=== PATIENT | male | born 1995 | race Caucasian/White ===

== ENCOUNTER → 2018-01-25 | Outpatient (CLI) | payer BC ==
[2016-08-29 11:42] VITALS: BMI 33.4
[~2018-01-25] MED LIST: ABILIF5PT PO; AMOX-362 PO; AMOX-559 PO; ARIP2TAB2 PO; CYCL10TA29 PO; DEXM10CP6 PO; DEXM10TA3 PO; HYDR-317 PO; HYDR-4309 PO; IBUP800T37 PO; KET10 PO; MELA3TAB31 PO; METHY10 GT; ONDA4TAB PO; PRED20TA6 PO; PROM-110 PO; SERT-173 PO; TRAM-420 PO
--- NOTE | 2018-01-25 14:35 | RADIOLOGY IMAGING REPORT ---
FACILITY: [facility] - [place] PATIENT NAME: Rogerio Dinh : 1995 MR: [id number] V: [id number] EXAM DATE: ORDERING PHYSICIAN: KAYLA TEJADA TECHNOLOGIST: Location: [facility] - [place] Patient: Rogerio Dinh : 1995 Visit/Account:[id number] Date of Sevice: 01/25/2018 Exam type: SOFT TISSUE HEAD NECK History: Lump in left side of neck Comparison: None. Findings: There are multiple mildly prominent cervical lymph nodes bilaterally. The largest lymph node in zone five on the right measures 2 x 1.3 x 0.5 cm. Largest lymph node in zone two on the right measures 1 .5 x 1.8 x 0.9 cm. The largest lymph node in zone five on the left measures 5 x 1.8 x 1.2 cm the largest lymph node in z one six on the left measures 1.8 x 1.4 x 0.6 cm IMPRESSION: 1. There multiple enlarged bilateral cervical lymph nodes. CT of the neck with contrast is recommen ded Report Dictated By: Ariana Lovell MD at 01/25/2018 2:25 PM Report E-Signed By: Ariana Lovell MD at 01/25/2018 2:30 PM WSN:[email or web address]
== END ==
LOC: US 00:41
PROVIDERS: ATTEND Physician Assistant Medical
DX: R59.0 Localized enlarged lymph nodes (principal)
CPT/HCPCS: 76536

== ENCOUNTER → 2018-01-27 | Outpatient (CLI) | payer BC ==
[2016-08-29 11:42] VITALS: BMI 33.4
[~2018-01-27] MED LIST changes: +IOPAMIDOL 76% 75 ML INFUS BTL 75 ML ONE
--- NOTE | 2018-01-27 18:03 | RADIOLOGY IMAGING REPORT ---
FACILITY: [facility] - [place] PATIENT NAME: Rogerio Dinh : 1995 MR: [id number] V: [id number] EXAM DATE: ORDERING PHYSICIAN: KAYLA TEJADA TECHNOLOGIST: Location: [facility] Patient: Rogerio Dinh : 1995 Visit/Account:[id number] Date of Sevice: 01/27/2018 NECK SOFT TISSUE W CONTRAST Provided history: Probably enlarged lymph nodes, left greater than right. Additional pertinent history: none TECHNIQUE: Spiral scan was obtained from the hard palate through the upper chest with intravenous contrast Contrast dose: 75 mL Isovue 370 intravenously. One of the following dose optimization techniques was utilized in the performance of this exam: Autom ated exposure control; adjustment of the mA and/or kV according to the patient's size; or use of an i terative reconstruction technique. Specific details can be referenced in the facility's radiology CT exam operational policy. COMPARISON STUDIES: Ultrasound 01/25/18 FINDINGS: Visualized orbits / brain / paranasal sinuses: Several small retention cysts noted both maxillary si nuses. No air-fluid levels. Mild leftward deviation nasal septum. Potential small polyp left nasal ca vity. Nasal cavity / nasopharynx: Per above Oral cavity / oropharynx / hypopharynx: negative Parapharyngeal / schedule manager spaces: negative Major salivary glands: There are 3 small circumscribed soft tissue nodules in the superficial left p arotid, the largest measuring up to 8 mm in size. Though likely intraparotid lymph nodes these are no nspecific by CT. 2 additional smaller similar nodules present in the superficial right parotid. Larynx / trachea / esophagus / thyroid: negative Perivertebral space: negative Vessels: negative Bones: negative Skin / subcutaneous spaces: negative Lymph nodes: There are multiple circumscribed mildly prominent lymph nodes in all levels of the neck . As examples: Image 56, right level 1, 9 x 17 mm Image 54, right level 2, 9 x 17 mm Image 60, right level 3, 8 x 14 mm Image 53, left level 1, 9 x 18 mm Image 47, left level 2, 10 x 17 mm Image 55, left level 2, 11 x 12 mm Image 66, left level 3, 10 x 20 mm Image 89, left medial supraclavicular, 11 x 12 mm Image 88, left lateral subclavicular, 10 x 18 mm Upper chest: negative IMPRESSION: Numerous circumscribed borderline prominent-mildly prominent lymph nodes in the neck as fully detaile d above also involving both parotid glands. Leading consideration is a lymphoproliferative disorder. Metastatic disease is unlikely. Report Dictated By: Milton Martinez MD at 01/27/2018 5:43 PM Report E-Signed By: Milton Martinez MD at 01/27/2018 6:00 PM WSN:[email or web address]
== END ==
LOC: RAD 15:29
PROVIDERS: ATTEND Physician Assistant Medical
DX: R59.0 Localized enlarged lymph nodes (principal)
CPT/HCPCS: 70491; Q9967

== ENCOUNTER 2018-02-08 01:24 | Day surgery (SDC) | payer BC ==
[2016-08-29 11:42] VITALS: Ht 193 cm; Wt 134.7 kg
--- NOTE | 2018-02-02 17:38 | HISTORY AND PHYSICAL ---
DATE OF ADMISSION: February 08, 2018 CHIEF COMPLAINT Cervical adenopathy. HISTORY OF PRESENT ILLNESS This is a 23-year-old male with a few week history of swollen lymph nodes in the neck. He has had some associated nausea and he has had a little weight loss. He has had sweats. He had an ultrasound and a CAT scan which showed cervical lymphadenopathy. PAST SURGICAL HISTORY * Deviated septum. * Tonsillectomy. ALLERGIES TORADOL. CURRENT MEDICATIONS * Sertraline. * Focalin. * Dexmethylphenidate. * Omeprazole. REVIEW OF SYSTEMS Unremarkable. PHYSICAL EXAMINATION GENERAL: A 23-year-old man in no acute distress. LYMPH NODES: He has palpable small lymph nodes bilaterally, the most prominent one posteriorly low down on the left. No axillary or inguinal lymph nodes palpable. IMPRESSION Cervical lymphadenopathy PLAN We will do an excisional biopsy of one of the lymph nodes. We discussed the procedure, complications, recovery time. He seems to understand and wishes to proceed. RAMON
[~2018-02-08] VITALS: Ht 193 cm; Wt 134.7 kg
[2018-02-08] VITALS (7 sets, daily range): BP systolic 109–140; BP diastolic 63–77
[~2018-02-08 01:24] MED LIST changes: -IOPAMIDOL 76% 75 ML INFUS BTL 75 ML ONE
--- NOTE | 2018-02-08 04:11 | NACHTIGAL H&P ---
DATE OF ADMISSION: February 08, 2018 CHIEF COMPLAINT Cervical lymphadenopathy. HISTORY OF PRESENT ILLNESS This is a 23-year-old male with a few week history of swollen lymph nodes in his neck. He has had some nausea. He had a little weight loss. He has had sweats. Patient underwent an ultrasound and a CT which shows cervical lymphadenopathy. ALLERGIES KETOROLAC. CURRENT MEDICATIONS 1. Sertraline 100 mg 2 tablets a day. 2. Focalin 10 mg a day. 3. Dexmethylphenidate 40 mg daily. 4. Aripiprazole 15 mg nightly. PAST MEDICAL HISTORY/OPERATIONS Deviated septum and tonsillectomy. REVIEW OF SYSTEMS No cardiac, pulmonary, liver or kidney disease, diabetes or hypertension. No history of deep venous thrombosis. PHYSICAL EXAMINATION He has small lymph nodes palpable bilaterally in the neck. The most prominent one is posterior on the left, no axillary or inguinal lymphadenopathy was palpable. IMPRESSION Cervical lymphadenopathy. PLAN Will do an excisional biopsy of the posterior lymph node on the left for analysis. [facility]
[2018-02-08] MEDS ORDERED: LIDOCAINE/SOD BICARB 8.4% SYR ID ONE (06:30)
[2018-02-08] MEDS ORDERED: MIDAZOLAM 2 MG/2 ML VIAL IVP ONE (06:30)
[2018-02-08] MEDS ORDERED: FAMOTIDINE 20 MG TAB PO ONE (06:30)
[2018-02-08] MEDS ORDERED: NORMOSOL R SOLN(*) 1000 ML BAG 1,000 ML IV PRN (06:30)
[2018-02-08] MEDS ORDERED: ROPIVACAINE 0.2% 20 ML VIAL ONE ×2 (06:35→09:20)
[2018-02-08] MEDS ORDERED: DEXAMETHASONE SOD 4 MG/ML VIAL ONE (07:52)
[2018-02-08] MEDS ORDERED: ONDANSETRON 4 MG/2 ML VIAL ONE (07:52)
[2018-02-08] MEDS ORDERED: PROPOFOL EMUL(*) 10MG/ML 20 ML 20 ML ONE (07:52)
[2018-02-08] MEDS ORDERED: LIDOCAINE MPF 1% 5 ML VIAL ONE (07:52)
[2018-02-08] MEDS ORDERED: fentaNYL CITR 100 MCG/2 ML AMP ONE ×2 (07:52→09:44)
[2018-02-08 08:35] LABS: PLATELET COUNT, AUTOMATED 264 K/uL (150-450)
[2018-02-08] MEDS ORDERED: KETOROLAC 30 MG/ML VIAL ONE (08:50)
[2018-02-08] MEDS ORDERED: KETAMINE HCL 200 MG/20 ML MDV ONE (09:45)
[2018-02-08] MEDS ORDERED: GELATIN SPONGE 12-7MM ONE (10:04)
--- NOTE | 2018-02-08 10:15 | Post Operative Progress Note ---
Post Operative Progress Note Date: Feb 08, 2018 Time: 10:14 Surgeon: genaro Anesthesia: dr arnold Pre-Op Diagnosis: cervical lymphadenopathy Post-Op Diagnosis: same Procedure(s): left cervial lymph node biopsy VILMA CAMACHO MD Feb 08, 2018 10:15
--- NOTE | 2018-02-08 10:17 | Short(Outpt) Discharge Summary ---
Discharge Summary Reason for Hosp/Final Diag: (1) Cervical lymphadenopathy Hospital Course & Plan: left cervical lymph node biopsy Departure Discharge to: Home Discharge Instructions Home Meds Reported Medications Dexmethylphenidate Hcl (FOCALIN XR) 10 Mg Cpmp.50.50, 10 MG PO QDAY Take 10 mg at 1500 Hrs. 08/28/16 Aripiprazole (Aripiprazole) 2 Mg Tablet, MG PO QDAY 08/28/16 Aripiprazole (ABILIFY) 5 Mg Tablet, 7 MG PO QDAY, #10 TAB 02/25/16 Dexmethylphenidate Hcl (FOCALIN) 10 Mg Tablet, 30 MG PO QDAY 30 mg every morning 02/25/16 Sertraline Hcl (ZOLOFT) 100 Mg Tablet, 200 MG PO QAM, TAB 02/25/16 Discontinued Scripts Hydrocodone/Acetaminophen (Lortab 5-325 mg Tablet) 1 Each Tablet, 1 TAB PO Q4-6H , #15 Prov:BEULAH COHEN DO 10/17/16 Cyclobenzaprine Hcl (CYCLOBENZAPRINE HCL) 10 Mg Tablet, 10 MG PO TID, #15 TAB TAKE 1 TABLET BY MOUTH THREE TIMES A DAY Prov:BEULAH COHEN DO 10/17/16 Diet: Regular Activity: As Tolerated Special Instructions: remove bandage and shower to see me in one week, call [phone] for apt tylenol or ibuprofen for pain VILMA CAMACHO MD Feb 08, 2018 10:17
--- NOTE | 2018-02-08 19:58 | OPERATIVE REPORT 1 ---
EVENT DATE: February 08, 2018 SURGEON: Samuel Hanley MD ANESTHESIOLOGIST: Albert Johnson MD ANESTHESIA: General. PREOPERATIVE DIAGNOSIS Cervical lymphadenopathy. POSTOPERATIVE DIAGNOSIS Cervical lymphadenopathy. PROCEDURE PERFORMED Excision of left posterior cervical lymph node. DESCRIPTION OF PROCEDURE The patient was placed in the supine position and given general anesthetic. His head was rotated to the right. The lymph node was previously marked. This area was then prepped and draped in a sterile fashion. This was posterior and a little lower in the neck. An incision was made over the top of this. We then used blunt dissection to dissect down to the lymph node. We stayed adjacent to the lymph node and removed it from the field. Hemostasis was obtained with electrocautery, and also we placed a piece of Gelfoam. The skin was closed with interrupted 4-0 Maxon. Steri-Strips and an Airstrip were placed. The specimen was sent fresh for pathologic analysis. [facility]
== END 2018-02-08 10:57 | disposition home or self-care (01) ==
LOC: OR 01:24
PROVIDERS: ATTEND Surgery
DX: R59.0 Localized enlarged lymph nodes (principal)
CPT/HCPCS: 36415; 38510; 85025; 88305; J1100; J1885; J2001; J2250; J2405; J2704; J2795; J3010; J3490

== ENCOUNTER 2018-02-11 17:08 | Emergency (ER) | payer OTHER, BC ==
[2016-08-29 11:42] VITALS: Wt 134.7 kg
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
--- NOTE | 2018-02-11 18:51 | RADIOLOGY IMAGING REPORT ---
FACILITY: [facility] PATIENT NAME: Rogerio Dinh : 1995 MR: [id number] V: [id number] EXAM DATE: ORDERING PHYSICIAN: EWA WILEY TECHNOLOGIST: Location: [facility] [place] Patient: Rogerio Dinh : 1995 Visit/Account:[id number] Date of Sevice: 02/11/2018 EXAMINATION: CT Lumbar spine without intravenous contrast HISTORY: Lower back pain. COMPARISON: CT abdomen and pelvis from 09/03/2016. TECHNIQUE: Axial images were obtained through the lumbar spine without IV contrast administration. C oronal and sagittal reformatted images were obtained from the axial source data. One of the following dose optimization techniques was utilized in the performance of this exam: Autom ated exposure control; adjustment of the mA and/or kV according to the patient's size; or use of an i terative reconstruction technique. Specific details can be referenced in the facility's radiology C T exam operational policy. FINDINGS: Alignment: Normal. Vertebral bodies: Vertebral body heights are maintained. No acute fracture. Schmorl nodes in the infe rior endplates of the lower thoracic vertebral endplates and in the inferior endplate of L1. Posterior elements: Negative. Hardware: None. Disc Spaces: Mild disc space narrowing at L5-S1 with diffuse disc bulge and mild endplate osteophyte. There is moderate narrowing of the bilateral L5-S1 neural foramina. Mild bulging of the L4-5 disc wh ich slightly indents the ventral thecal sac. The bilateral L4-5 neural foramina are mildly narrowed. Soft tissues: Negative. Visualized retroperitoneal / abdominal structures: Negative. IMPRESSION: No acute fracture of the lumbar spine. Bulging of the discs at L4-5 and L5-S1 with mild bilateral neural foraminal narrowing at L4-5 and mod erate bilateral neural foraminal narrowing at L5-S1. Report Dictated By: Tex Mann MD at 02/11/2018 6:38 PM Report E-Signed By: Tex Mann MD at 02/11/2018 6:47 PM WSN:[id number]
[2018-02-11 19:00] VITALS: BP 124/81
[2018-02-11] MEDS ORDERED: CYCL10TA29 PO (19:04)
== END 2018-02-11 19:05 | disposition home or self-care (01) ==
LOC: ER 17:11
DX: S39.012A Strain of muscle, fascia and tendon of lower back, initial encounter (principal); V49.40XA Driver injured in collision with unspecified motor vehicles in traffic accident, initial encounter
CPT/HCPCS: 72131; 99283

== ENCOUNTER 2018-10-18 21:29 | Emergency (ER) | payer BC, OTHER ==
[2016-08-29 11:42] VITALS: BMI 33.4
[~2018-10-18 21:29] MED LIST changes: -HYDR-4309 PO; +HYDR-653 PO
[2018-10-18] MEDS ORDERED: NS(*) 0.9% 1000 ML BAG 1,000 ML IV ONE (21:45)
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
[2018-10-18] MEDS ORDERED: SERT-181 PO (21:54)
[2018-10-18] MEDS ORDERED: BUPR-472 PO (21:54)
[2018-10-18] MEDS ORDERED: DEXM10TA3 PO (21:54)
[2018-10-18 22:40] LABS: PLATELET COUNT, AUTOMATED 357 K/uL (150-450)
[2018-10-18 23:30] VITALS: BP 114/72
== END 2018-10-18 23:52 | disposition home or self-care (01) ==
LOC: ER 22:02
DX: F43.20 Adjustment disorder, unspecified (principal)
CPT/HCPCS: 80305; 80320; 80329; 81001; 83735; 84443; 85025; 99284; J7030; 82040; 82247; 82310; 82374; 82435; 82565; 82947; 84075; 84132; 84155; 84295; 84450; 84460; 84520

== ENCOUNTER 2019-01-22 04:51 | Inpatient (IN) | payer BC ==
[2016-08-29 11:42] VITALS: BMI 33.4
[~2019-01-22 04:51] MED LIST changes: -LORazepam 2 MG/ML VIAL IVP ONE; -NS(*) 0.9% 1000 ML BAG 1,000 ML IV ONE; -OLANZapine 10 MG VIAL IM ONLY ONE; -WATER STERILE 10 ML VIAL IM ONLY ONE; -diphenhydrAMINE 50 MG/ML VIAL IVP ONE
[2019-01-22 11:24] VITALS: BP 131/80
--- NOTE | 2019-01-22 11:58 | NUR ---
Pt denies having any recollection of how he got to the hospital. Denies being depressed or suicidal. When told he would not be able to leave the hospital he became visibly upset and began getting loud and yelling obscenities. Pt was escorted back to his room in Unit [address].
[2019-01-22 20:54] VITALS: BP_SYST 134; BP_DIAS 91; BP_DIAS 92
[2019-01-22] MEDS ORDERED: ARIPiprazole 2 MG TAB PO SCH (21:00)
--- NOTE | 2019-01-22 21:02 | NUR ---
Patient currently resting with ou closed, arouses easily to verbal stimuli. Denies any needs or concerns at this time. Pleasant with conversation. Took pm meds without difficulties. No s/s of distress or discomfort noted.
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
[2019-01-23 04:05] VITALS: BP 115/91
[2019-01-23] MEDS ORDERED: SERTRALINE HCL 50 MG TAB PO SCH (09:00)
--- NOTE | 2019-01-23 15:24 | BHS Discharge Summary ---
[facility] Discharge Summary [id number] Encounter Date: Jan 23, 2019 [id number] Encounter Time: 09:30 Reason-Hosp/Final Diag (DSM-V): (1) Alcohol use disorder, moderate, dependence Hospital Course & Plan: PRESENTING PROBLEM/CHIEF COMPLAINT "I don't remember getting here. I was blackout drunk. I don't remember coming to [facility] at all." HISTORY OF PRESENT ILLNESS This patient was admitted to the unit on a voluntary basis from the emergency room. There are a lot of unanswered questions at this time, as patient does not remember coming to the hospital. He does not recall how he arrived at the hospital. He does know that he was drinking alcohol with his friends at the bar. His friends left and he continued to go to bars on his own. He drank 15 or more mixed drinks last night, which is more than he usually drinks, he reports. It was reported by the ER physician that he made suicidal statements; however, this morning, patient is denying any suicidal ideation. He does not recall making suicidal statements while he was intoxicated. He is wanting to leave the unit. He reports that although he does take psychiatric medications and is in treatment with a psychologist at the [facility] and a psychiatrist in [place], his depression has been managed. He reports that he has been sleeping well. His grades are good. He cannot think of any stressors. He reports that he has a supportive family. CURRENT MEDICATIONS 1. Focalin 40 mg every morning and 20 mg at 3 p.m. He says that he has been taking that for five years. 2. He reports taking Abilify 7 mg at bedtime. He reports that he has been on this for over five years. 3. He reports taking Zoloft 200 mg in the morning, and that he has been taking this for five years. MENTAL HEALTH HISTORY He has a psychiatrist who is in [place]. He says that he talks to his psychiatrist on the phone every three to four months. He reports that he has a psychologist at the [facility] named Wilson. HOSPITAL COURSE Pt was admitted to [facility] and maintained on suicide precautions. He was cooperative at all times. He wanted to be discharged and was irritated that we had him stay over again on Wednesday night, just to make sure he sobered up com pletely and so that we could get some corroboration of his story. The ER physician did confirm that he had mentioned being suicidal. But throughout his hospital stay on S he denied SI, was bright in affect, was future oriented, talking about liking his job in [employer] at . We discussed alcohol use disorder and the warning signs he is exhibiting in terms of self-destructive drinking. We spoke with his outpatient therapist who said she had not seen him since November-- she did say she would like to continue seeing him for therapy, but that she would have to get her marina sales and service supervisor's approval since her case load has since filled up. We did therefore also give him an outpatient referral to [facility] for therapy. He will continue his current medications as prescribed by his psychiatrist in [place]. He was stable for discharge and wanted to get to his 11 am class, so he was discharged in the AM. (2) Persistent depressive disorder (3) ADHD (attention deficit hyperactivity disorder), combined type Physical Exam Latest Vital Signs Vital Signs 01/23/19 04:05 Temp 98.1 Pulse 122 Resp 15 B/P (MAP) 115/91 (99) Pulse Ox 94 O2 Delivery Room Air Mental Status Exam General Appearance: Casual, Well Groomed, Good Eye Contact, Cooperative, Polite, Good Interaction Speech: Clear, Spontaneous, Normal Rate, Normal Rhythm, Normal Volume, Normal Tone Mood: Euthymic Affect: Full and Appropriate, Calm Thought Process: Organized, Logical, Goal Directed Thought Content: No Suicidal Ideation, No Homicidal Ideation, No Delusions, No Auditory Halllucinations, No Visual Hallucinations, No Thought Broadcasting, No Ideas of Reference, No Obsessions, No Compulsions, No Other Sensorium: Clear Cognition: Alert & Oriented-Person, Alert & Oriented-Place, Alert & Oriented- Time, Aqfwu-Wzmtfhic-Kjxteerov Memory: Immediate, Recent, Remote Intelligence: Average Insight Judgment: Good Departure Item Value Date Time White Blood Count 8.2 k/uL 01/22/19149 Red Blood Count 4.67 M/uL 01/22/19149 Hemoglobin 14.9 g/dL 01/22/19149 Hematocrit 42.0 % 01/22/19149 Mean Corpuscular Volume 90.0 fL 01/22/19149 Mean Corpuscular Hemoglobin 31.9 pg 01/22/19149 Mean Corpuscular Hemoglobin Concent 35.5 g/dL 01/22/19 015 Red Cell Distribution Width 12.6 % 01/22/19 015 Platelet Count 284 K/uL 01/22/19 015 Sodium Level 144 mmol/L 01/22/19 0150 Potassium Level 3.2 mmol/L L 01/22/19 015 Chloride Level 106 mmol/L 01/22/19 015 Blood Urea Nitrogen 7 mg/dl L 01/22/19 015 Carbon Dioxide Level 20 mmol/L L 01/22/19 0150 Creatinine 0.80 mg/dl 01/22/19 015 Glomerular Filtration Rate Calc > 60.0 01/22/19 015 Random Glucose 109 mg/dl 01/22/19 0150 Calcium Level 9.7 mg/dl 01/22/19 0150 Magnesium Level 2.4 mg/dl H 01/22/19 0150 Total Bilirubin 0.5 mg/dl 01/22/19 015 Aspartate Amino Transf (AST/SGOT) 37 U/L H 01/22/19 0150 Alanine Aminotransferase (ALT/SGPT) 73 U/L H 01/22/19 0150 Alkaline Phosphatase 83 U/L 01/22/19 0150 Total Protein 8.5 g/dl H 01/22/19 0150 Albumin 5.3 g/dl H 01/22/19 0150 Amylase Level 54 U/L 09/03/16 0014 Lipase 31 U/L 09/03/16 0014 Thyroid Stimulating Hormone (TSH) 3.74 uIU/ml 01/22/19 015 Urine Color Colorless 01/22/19 013 Urine Clarity Clear 01/22/19136 Urine pH 6.0 pH 01/22/19136 Urine Specific [place] 1.001 01/22/19 013 Urine Protein Negative mg/dL 01/22/19136 Urine Glucose (UA) Negative mg/dL 01/22/19136 Urine Ketones Negative mg/dL 01/22/19136 Urine Blood Negative 01/22/19136 Urine Nitrite Negative 01/22/19136 Urine Bilirubin Negative 01/22/19136 Urine Leukocyte Esterase Negative 01/22/19136 Urine Urobilinogen Negative mg/dL 01/22/19136 Urine RBC <1 /HPF 01/22/19136 Urine WBC None /HPF 01/22/19136 Urine Squamous Epithelial Cells Few /LPF 01/22/19136 Urine Bacteria Negative /HPF 01/22/19136 Urine Mucus None /HPF 01/22/19136 Salicylates Level < 10 mg/L 01/22/19149 Salicylate Last Dose Date unk 01/22/19 015 Urine Opiates Screen Negative 01/22/19136 Acetaminophen Level < 10 ug/ml 01/22/19149 Urine Barbiturates Screen Negative 01/22/19136 Ur Tricyclic Antidepressants Screen Negative 01/22/19136 Urine Phencyclidine Screen Negative 01/22/19136 Urine Amphetamines Screen Negative 01/22/19136 Urine Benzodiazepines Screen Negative 01/22/19136 Urine Cocaine Screen Negative 01/22/19136 Urine Cannabinoids Screen Negative 01/22/19136 Serum Alcohol 204 mg/dl 01/22/19 015 Condition: Improved Discharge to: Home Discharge Instructions Home Meds Reported Medications Sertraline Hcl (SERTRALINE HCL) 100 Mg Tablet, 200 MG PO QDAY, TAB 01/22/19 Dexmethylphenidate Hcl (FOCALIN) 10 Mg Tablet, 40 MG PO QDAY 10/18/18 Dexmethylphenidate Hcl (FOCALIN) 10 Mg Tablet, 20 MG PO QDAY 10/18/18 Aripiprazole (ABILIFY) 5 Mg Tablet, 7 MG PO QDAY, #10 TAB 02/25/16 Discontinued Reported Medications Bupropion Hcl (WELLBUTRIN XL) 150 Mg Tab.er.24h, 150 MG PO QDAY, TAB 10/18/18 Sertraline Hcl (SERTRALINE HCL) 100 Mg Tablet, 150 TAB PO QDAY, TAB 10/18/18 Multpiple Antipsychotics Used: No Diet: Regular Activity: As Tolerated Special Instructions: Discharge home. Follow-up with outpatient therapy and medication management. Abstain from alcohol and all illicit substances. Return to E.R. for return of suicidal ideation or homicidal ideation. KISHORE RICHARDSON MD Jan 23, 2019 15:24
== END 2019-01-23 10:37 | disposition home or self-care (01) | DRG 897 ==
LOC: BHS 04:51
PROVIDERS: ADMIT Nurse Practitioner Psychiatric/Mental Health; ATTEND Nurse Practitioner Psychiatric/Mental Health
DX: F10.220 Alcohol dependence with intoxication, uncomplicated (principal); F90.9 Attention-deficit hyperactivity disorder, unspecified type; F34.1 Dysthymic disorder; Y90.7 Blood alcohol level of 200-239 mg/100 ml

== ENCOUNTER → 2019-01-22 | Emergency (ER) | payer BC, OTHER ==
[2016-08-29 11:42] VITALS: Wt 133.8 kg
[~2019-01-22] MED LIST changes: +BUPR-472 PO; +LORazepam 2 MG/ML VIAL IVP ONE; +NS(*) 0.9% 1000 ML BAG 1,000 ML IV ONE; +OLANZapine 10 MG VIAL IM ONLY ONE; +SERT-181 PO; +WATER STERILE 10 ML VIAL IM ONLY ONE; +diphenhydrAMINE 50 MG/ML VIAL IVP ONE
--- NOTE | 2019-01-22 01:49 | ER Report ---
History and Physical Time Seen By MD: 01:49 Hx. of Stated Complaint: patient states that one of his friends tried herself and he has been having a hard time with it; patient states that he has been drinking HPI/ROS CHIEF COMPLAINT: depressed with suicidal ideation HISTORY OF PRESENT ILLNESS: This is a 24 year old male. He was dropped of at the ER by a friend. He is crying. He is intoxicated. He says he is depressed. Difficult to determine why, and he gets very angry at me with my questions. Eventually determined that he is missing a coworker, female, friend, who simply has been missing. He does not know where she went or what happened to her. He misses her. He says he wants to and was planning on taking a whole bottle of acetaminophen that he has at home. When asked about how likely it would be that he would do this, he says extremely likely. He has a history of depression. He is on medicines that he obtains from his doctor in [place]. Has tried to see a counselor here in [place] in the past, but that did not work out, so stopped. 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 He denies any other self harm behaviors tonight. Denies drug use. Denies taking any over the counter medicines. Denies recent illnesses. REVIEW OF SYSTEMS: Respiratory: No cough, no dyspnea. Cardiovascular: No chest pain, no palpitations. Gastrointestinal: No vomiting, no abdominal pain. Musculoskeletal: No back pain. Genitourinary: No problems with urination. Allergies: Coded Allergies: ketorolac (Verified Adverse Reaction, Unknown, DELUSIONS, 10/18/18) Pt. states Toradol causes suicidal ideation. Home Meds Reported Medications Sertraline Hcl (SERTRALINE HCL) 100 Mg Tablet, 200 MG PO QDAY, TAB 01/22/19 Dexmethylphenidate Hcl (FOCALIN) 10 Mg Tablet, 40 MG PO QDAY 10/18/18 Dexmethylphenidate Hcl (FOCALIN) 10 Mg Tablet, 20 MG PO QDAY 10/18/18 Aripiprazole (ABILIFY) 5 Mg Tablet, 7 MG PO QDAY, #10 TAB 02/25/16 Discontinued Reported Medications Bupropion Hcl (WELLBUTRIN XL) 150 Mg Tab.er.24h, 150 MG PO QDAY, TAB 10/18/18 Sertraline Hcl (SERTRALINE HCL) 100 Mg Tablet, 150 TAB PO QDAY, TAB 10/18/18 Reviewed Nurses Notes: Yes Hx Smoking: No Smoking Status: Never Smoker Exposure to Second Hand Smoke?: Yes (family/friends) Hx Substance Use Disorder: No Hx Alcohol Use: No Constitutional Vital Sign - Last 24 Hours 01/22/19 01/22/19 01/22/19 01/22/19 01:39 01:44 01:49 03:19 Temp 98.3 Pulse 148 137 Resp 18 B/P (MAP) 135/88 135/88 (104) 128/74 (92) Pulse Ox 92 94 O2 Delivery Room Air 01/22/19 01/22/19 01/22/19 01/22/19 03:31 03:36 04:06 04:30 Pulse 107 104 86 Resp 16 22 23 B/P (MAP) 99/72 (81) Pulse Ox 90 89 01/22/19 01/22/19 01/22/19 01/22/19 04:35 04:45 04:50 05:00 Pulse 90 90 Resp 22 13 B/P (MAP) 113/52 (72) 90/58 (69) 01/22/19 01/22/19 01/22/19 01/22/19 05:20 05:29 05:31 05:36 Pulse 82 80 80 Resp 25 22 18 B/P (MAP) 105/66 (79) Pulse Ox 90 92 01/22/19 01/22/19 05:45 06:00 B/P (MAP) 107/64 (78) 100/52 (68) Pulse Ox 93 Intake and Output0 01/21/19 01/21/19 01/22/19 15:00 23:00 07:00 Intake Total 1000 ml Balance 1000 ml Physical Exam General Appearance: Alert, crying, panicking at times, very angry and throwing things and threatening violence at other times. Very difficult to get history from. Eyes: Pupils equal and round, reactive to light, extraocular movements are intact, has scleral injection. ENT: Normal oral mucosa. Moist mucous membranes. Tympanic membranes are normal. Neck: Neck is supple and non tender. Respiratory: Chest is non tender, lungs are clear to auscultation. Cardiac: regular rate and rhythm, normal peripheral perfusion. Gastrointestinal: Abdomen is soft and non tender, bowel sounds normal. Musculoskeletal: Extremities have full range of motion. Skin: No rashes or lesions. Neuro: Alert, oriented to place and self. Intoxicated, but no other focal deficits noted. DIFFERENTIAL DIAGNOSIS: After history and physical exam differential diagnosis was considered for depression with acute suicidal ideation. Acute alcohol intoxication. Medical Decision Making Data Points Result Diagram: 01/22/19 0150 01/22/19 0150 Laboratory Hematology Test 01/22/19 01:37 01/22/19 01:50 Urine Color Colorless Urine Clarity Clear Urine pH 6.0 pH (4.8-9.5) Urine Specific [place] 1.001 Urine Protein Negative mg/dL (NEGATIVE) Urine Glucose (UA) Negative mg/dL (NEGATIVE) Urine Ketones Negative mg/dL (NEGATIVE) Urine Blood Negative (NEGATIVE) Urine Nitrite Negative (NEGATIVE) Urine Bilirubin Negative (NEGATIVE) Urine Urobilinogen Negative mg/dL (0.2-1.9) Urine Leukocyte Esterase Negative (NEGATIVE) Urine RBC <1 /HPF (0-2/HPF) Urine WBC None /HPF (0-5/HPF) Urine Squamous Epithelial Cells Few /LPF (</=FEW) Urine Bacteria Negative /HPF (NONE-FEW) Urine Mucus None /HPF (NONE-FEW) Urine Opiates Screen Negative Urine Barbiturates Screen Negative Ur Tricyclic Antidepressants Screen Negative Urine Phencyclidine Screen Negative Urine Amphetamines Screen Negative Urine Benzodiazepines Screen Negative Urine Cocaine Screen Negative Urine Cannabinoids Screen Negative Red Blood Count 4.67 M/uL (4.00-5.60) Mean Corpuscular Volume 90.0 fL (80.0-96.0) Mean Corpuscular Hemoglobin 31.9 pg (26.0-33.0) Mean Corpuscular Hemoglobin Concent 35.5 g/dL (32.0-36.0) Red Cell Distribution Width 12.6 % (11.5-14.5) Mean Platelet Volume 8.8 fL (7.2-11.1) Neutrophils (%) (Auto) 56.5 % (39.4-72.5) Lymphocytes (%) (Auto) 34.1 % (17.6-49.6) Monocytes (%) (Auto) 6.4 % (4.1-12.4) Eosinophils (%) (Auto) 2.3 % (0.4-6.7) Basophils (%) (Auto) 0.7 % (0.3-1.4) Nucleated RBC Relative Count (auto) 0.1 /100WBC Neutrophils # (Auto) 4.6 K/uL (2.0-7.4) Lymphocytes # (Auto) 2.8 K/uL (1.3-3.6) Monocytes # (Auto) 0.5 K/uL (0.3-1.0) Eosinophils # (Auto) 0.2 K/uL (0.0-0.5) Basophils # (Auto) 0.1 K/uL (0.0-0.1) Nucleated RBC Absolute Count (auto) 0.01 K/uL Sodium Level 144 mmol/L (137-145) Potassium Level 3.2 mmol/L (3.5-5.0) Chloride Level 106 mmol/L (98-107) Carbon Dioxide Level 20 mmol/L (22-30) Blood Urea Nitrogen 7 mg/dl (9-21) Creatinine 0.80 mg/dl (0.66-1.25) Glomerular Filtration Rate Calc > 60.0 Random Glucose 109 mg/dl (75-110) Calcium Level 9.7 mg/dl (8.4-10.2) Magnesium Level 2.4 mg/dl (1.7-2.2) Total Bilirubin 0.5 mg/dl (0.2-1.3) Aspartate Amino Transf (AST/SGOT) 37 U/L (0-35) Alanine Aminotransferase (ALT/SGPT) 73 U/L (0-56) Alkaline Phosphatase 83 U/L (0-126) Total Protein 8.5 g/dl (6.3-8.2) Albumin 5.3 g/dl (3.5-5.0) Salicylates Level < 10 mg/L Salicylate Last Dose Date unk Acetaminophen Level < 10 ug/ml Serum Alcohol 204 mg/dl Chemistry Test 01/22/19 01:37 01/22/19 01:50 Urine Color Colorless Urine Clarity Clear Urine pH 6.0 pH (4.8-9.5) Urine Specific [place] 1.001 Urine Protein Negative mg/dL (NEGATIVE) Urine Glucose (UA) Negative mg/dL (NEGATIVE) Urine Ketones Negative mg/dL (NEGATIVE) Urine Blood Negative (NEGATIVE) Urine Nitrite Negative (NEGATIVE) Urine Bilirubin Negative (NEGATIVE) Urine Urobilinogen Negative mg/dL (0.2-1.9) Urine Leukocyte Esterase Negative (NEGATIVE) Urine RBC <1 /HPF (0-2/HPF) Urine WBC None /HPF (0-5/HPF) Urine Squamous Epithelial Cells Few /LPF (</=FEW) Urine Bacteria Negative /HPF (NONE-FEW) Urine Mucus None /HPF (NONE-FEW) Urine Opiates Screen Negative Urine Barbiturates Screen Negative Ur Tricyclic Antidepressants Screen Negative Urine Phencyclidine Screen Negative Urine Amphetamines Screen Negative Urine Benzodiazepines Screen Negative Urine Cocaine Screen Negative Urine Cannabinoids Screen Negative White Blood Count 8.2 k/uL (4.5-11.0) Red Blood Count 4.67 M/uL (4.00-5.60) Hemoglobin 14.9 g/dL (14.0-18.0) Hematocrit 42.0 % (42.0-52.0) Mean Corpuscular Volume 90.0 fL (80.0-96.0) Mean Corpuscular Hemoglobin 31.9 pg (26.0-33.0) Mean Corpuscular Hemoglobin Concent 35.5 g/dL (32.0-36.0) Red Cell Distribution Width 12.6 % (11.5-14.5) Platelet Count 284 K/uL (150-450) Mean Platelet Volume 8.8 fL (7.2-11.1) Neutrophils (%) (Auto) 56.5 % (39.4-72.5) Lymphocytes (%) (Auto) 34.1 % (17.6-49.6) Monocytes (%) (Auto) 6.4 % (4.1-12.4) Eosinophils (%) (Auto) 2.3 % (0.4-6.7) Basophils (%) (Auto) 0.7 % (0.3-1.4) Nucleated RBC Relative Count (auto) 0.1 /100WBC Neutrophils # (Auto) 4.6 K/uL (2.0-7.4) Lymphocytes # (Auto) 2.8 K/uL (1.3-3.6) Monocytes # (Auto) 0.5 K/uL (0.3-1.0) Eosinophils # (Auto) 0.2 K/uL (0.0-0.5) Basophils # (Auto) 0.1 K/uL (0.0-0.1) Nucleated RBC Absolute Count (auto) 0.01 K/uL Glomerular Filtration Rate Calc > 60.0 Calcium Level 9.7 mg/dl (8.4-10.2) Magnesium Level 2.4 mg/dl (1.7-2.2) Total Bilirubin 0.5 mg/dl (0.2-1.3) Aspartate Amino Transf (AST/SGOT) 37 U/L (0-35) Alanine Aminotransferase (ALT/SGPT) 73 U/L (0-56) Alkaline Phosphatase 83 U/L (0-126) Total Protein 8.5 g/dl (6.3-8.2) Albumin 5.3 g/dl (3.5-5.0) Salicylates Level < 10 mg/L Salicylate Last Dose Date unk Acetaminophen Level < 10 ug/ml Serum Alcohol 204 mg/dl Toxicology Test 01/22/19 01:37 01/22/19 01:50 Urine Opiates Screen Negative Urine Barbiturates Screen Negative Ur Tricyclic Antidepressants Screen Negative Urine Phencyclidine Screen Negative Urine Amphetamines Screen Negative Urine Benzodiazepines Screen Negative Urine Cocaine Screen Negative Urine Cannabinoids Screen Negative Salicylates Level < 10 mg/L Salicylate Last Dose Date unk Acetaminophen Level < 10 ug/ml Serum Alcohol 204 mg/dl Urinalysis Test 01/22/19 01:37 Urine Color Colorless Urine Clarity Clear Urine pH 6.0 pH (4.8-9.5) Urine Specific [place] 1.001 Urine Protein Negative mg/dL (NEGATIVE) Urine Glucose (UA) Negative mg/dL (NEGATIVE) Urine Ketones Negative mg/dL (NEGATIVE) Urine Blood Negative (NEGATIVE) Urine Nitrite Negative (NEGATIVE) Urine Bilirubin Negative (NEGATIVE) Urine Urobilinogen Negative mg/dL (0.2-1.9) Urine Leukocyte Esterase Negative (NEGATIVE) Urine RBC <1 /HPF (0-2/HPF) Urine WBC None /HPF (0-5/HPF) Urine Squamous Epithelial Cells Few /LPF (</=FEW) Urine Bacteria Negative /HPF (NONE-FEW) Urine Mucus None /HPF (NONE-FEW) ED Course/Re-evaluation Clinical Indication for ER IV: Hydration, IV Access ED Course Labs are unremarkable other than the elevated alcohol level and mild electrolyte abnormalities. as noted above. The patient is voluntary to be admitted to behavioral health. Did discuss that with suicidal ideation he needed to stay and that if he decided he did not want to stay, we would need to start a detainment process. He wants to stay and get help. Because he is so worked up, offered some medicines to help him sleep and relax. He accepted this offer. I explained that we would provide some Ativan and Benadryl IV and a shot of Zyprexa. He expressed understanding and said that he would be happy with anything that helped at this time. Had several other outbursts with behavioral health staff and nursing here in the ER, but eventually was able to sleep. Discussed with Rimma Edgar who accepted the patient for admission to behavioral [facility]. Decision to Disposition Date: Jan 22, 2019 Decision to Disposition Time: 04:00 Depart Departure Latest Vital Signs Vital Signs Date Time Temp Pulse Resp B/P (MAP) Pulse Ox O2 Delivery O2 Flow Rate FiO2 01/22/19 06:00 100/52 (68) 93 01/22/19 05:36 80 18 01/22/19 01:39 98.3 Room Air Impression: Primary Impression: Suicidal ideation Additional Impressions: Adjustment disorder with depressed mood Alcohol intoxication Condition: Condition Unchanged Disposition[facility] Problem Qualifiers Additional Impressions: Alcohol intoxication Complication of substance-induced condition: with unspecified complication Qualified Codes: F10.929 - Alcohol use, unspecified with intoxication, unspecified HOWARD RASHEED MD Jan 22, 2019 01:49
[2019-01-22 03:43] LABS: PLATELET COUNT, AUTOMATED 284 K/uL (150-450)
[2019-01-22 06:00] VITALS: BP 100/52
== END ==
LOC: ER 01:45
DX: F43.21 Adjustment disorder with depressed mood (principal); F10.929 Alcohol use, unspecified with intoxication, unspecified; R45.851 Suicidal ideations; R79.89 Other specified abnormal findings of blood chemistry
CPT/HCPCS: 80305; 80320; 80329; 81001; 83735; 84443; 85025; 96361; 96372; 96374; 96375; 99284; A4216; J1200; J2060; J3490; J7030; 82040; 82247; 82310; 82374; 82435; 82565; 82947; 84075; 84132; 84155; 84295; 84450; 84460; 84520